=== PATIENT | female | born 1975 | race Hispanic/Latino ===

== ENCOUNTER 2018-08-06 19:24 | Emergency (ER) | payer BC ==
[~2018-08-06 19:24] MED LIST: ERGO500014 PO; IRON-6 PO; MEDR10TA11 PO
[2018-08-06] MEDS ORDERED: SODIUM CHLORIDE 0.9% 1000ML 1,000 ML IV ONE (19:51)
[2018-08-06] MEDS ORDERED: ONDANSETRON HCL 4 MG/2 ML VIAL ONE (20:14)
[2018-08-06] MEDS ORDERED: FENTANYL CITRATE PF 50 MCG/1 ML 2ML VIAL ONE (20:14)
[2018-08-06 20:18] LABS: BASOPHILS % (AUTO) 2.2 % (0.0-5.0); EOSINOPHILS % (AUTO) 2.6 % (0.0-8.0); HEMATOCRIT 30.3 % (36-48); MEAN CORPUSCULAR HEMOGLOBIN 26.5 pg (27.0-33.0); MEAN CORPUSCULAR HGB CONC 32.7 g/dL (32.0-36.0); MONOCYTES % (AUTO) 8.1 % (3.0-13.0); NEUTROPHILS % (AUTO) 62.1 % (40.0-77.0); PLATELET COUNT (AUTO) 201 K/uL (130-400); RED BLOOD CELL COUNT(AUTO) 3.74 MIL/uL (4.00-5.50); RED CELL DISTRIBUTION WIDTH 16.9 % (11.0-15.5)
[2018-08-06 20:27] LABS: CARBON DIOXIDE 26 mmol/L (21-32); CHLORIDE 105 mmol/L (101-111); CREATININE 0.8 mg/dL (0.5-1.5); GLOMERULAR FILTR. RATE CALC 84 mL/min (>60); GLUCOSE,RANDOM 103 mg/dL (70-105); INR 0.9 (0.85-1.15); PARTIAL THROMBOPLASTIN TIME 24.8 SEC (26.3-35.5); POTASSIUM 3.2 mmol/L (3.5-5.1); PROTHROMBIN TIME 9.5 SEC (9.6-11.6); SODIUM SERUM 141 mmol/L (136-145); UREA NITROGEN, BLOOD 13 mg/dL (7-18)
[2018-08-06 20:31] LABS: ALANINE AMINOTRANSFERASE 16 U/L (12-78); ALBUMIN 3.2 g/dL (3.5-5.0); ASPARTATE AMINOTRANSFERASE 10 U/L (10-37); BILIRUBIN,DIRECT < 0.1 mg/dL (0.0-0.3); BILIRUBIN,TOTAL 0.1 mg/dL (0.2-1.0); LIPASE 159 U/L (114-286); TOTAL PROTEIN, SERUM 7.3 g/dL (6.0-8.3)
[2018-08-06] MEDS ORDERED: FUROSEMIDE 10 MG/ML 4ML VIAL ONE (21:07)
[2018-08-06 22:20] LABS: APPEARANCE,URINE Cloudy (CLEAR); BILIRUBIN,URINE Small (NEGATIVE); COLOR,URINE Red (YELLOW); GLUCOSE, URINE (UA) Negative (NEGATIVE); KETONES,URINE Negative (NEGATIVE); LEUKOCYTE ESTERASE ,URINE Large (NEGATIVE); NITRATE,URINE Positive (NEGATIVE); OCCULT BLOOD,URINE Large (NEGATIVE); PH,URINE 6.5 (5.0-8.0); PROTEIN,URINE POS 2+ (NEGATIVE); UROBILINOGEN,URINE 0.2 mg/dL (0.2-1.0)
[2018-08-06 22:22] LABS: HCG,QUAL RESULT NEGATIVE (NEGATIVE)
[2018-08-06 22:34] LABS: BACTERIA,URINE Moderate /HPF (None Seen); MUCUS,URINE None Seen LPF (None Seen); RBC,URINE TNTC /HPF (0-1); SQUAMOUS EPITHELIAL CELL,UR None Seen /HPF (0-2)
[2018-08-06] MEDS ORDERED: IOHEXOL-350 75 ML VIAL IV ONE (23:13)
[2018-08-06] MEDS ORDERED: DICYCLOMINE HCL 10 MG/ML 2ML AMP IM ONE (23:49)
== END 2018-08-07 01:25 | disposition home or self-care (01) ==
LOC: EDH 19:24
DX: G89.18 Other acute postprocedural pain (principal); R10.30 Lower abdominal pain, unspecified; Z88.0 Allergy status to penicillin; Z98.890 Other specified postprocedural states
CPT/HCPCS: 36415; 74177; 76856; 76857; 80048; 80076; 81001; 81025; 83690; 85025; 85610; 85730; 96372; 96374; 96375; 99284; J0500; J1940; J2405; J3010; J7030; Q9967

== ENCOUNTER 2018-08-14 08:24 | Day surgery (SDC) | payer BC ==
[2018-08-13 17:27] VITALS: BP 127/73
[2018-08-13 17:45] LABS: BASOPHILS % (AUTO) 2.7 % (0.0-5.0); HEMATOCRIT 30.6 % (36-48); LYMPHOCYTES % (AUTO) 22.1 % (21.0-51.0); MEAN CORPUSCULAR HEMOGLOBIN 25.5 pg (27.0-33.0); MEAN CORPUSCULAR HGB CONC 31.8 g/dL (32.0-36.0); MEAN CORPUSCULAR VOLUME 80.1 fL (79-99); MONOCYTES % (AUTO) 6.4 % (3.0-13.0); NEUTROPHILS % (AUTO) 63.8 % (40.0-77.0); NUCLEATED RED BLOOD CELLS 0.1 % (0.0-0.19); PLATELET COUNT (AUTO) 276 K/uL (130-400); RED BLOOD CELL COUNT(AUTO) 3.82 MIL/uL (4.00-5.50); RED CELL DISTRIBUTION WIDTH 16.5 % (11.0-15.5); WHITE BLOOD COUNT (AUTO) 7.5 K/uL (4.8-10.8)
[2018-08-14] VITALS (14 sets, daily range): BP systolic 104–138; BP diastolic 61–82
[~2018-08-14] VITALS: Ht 177.8 cm; Wt 112.1 kg
[~2018-08-14 08:24] MED LIST changes: +CALDOLOR 800MG+NS 250ML 250 ML IV SCH; +CEFAZOLIN 3GM /D5W 100ML 100 ML IV SCH; +LACTATED RINGERS 1000ML 1,000 ML IV SCH; -MEDR10TA11 PO
[2018-08-14] MEDS: CEFAZOLIN SODIUM 1 GM VIAL ONE ×2 (09:29→11:12)
[2018-08-14] MEDS ORDERED: ETHI1TAB18 PO (10:50)
[2018-08-14] MEDS ORDERED: DEXAMETHASONE SOD PHOSPHATE 10MG/ML 1ML VIAL ONE (10:59)
[2018-08-14] MEDS ORDERED: LIDOCAINE PF 2% 5ML ABBOJECT ONE (10:59)
[2018-08-14] MEDS ORDERED: PROPOFOL 10 MG/ML 20ML VIAL IV ONE (11:00)
[2018-08-14] MEDS ORDERED: MIDAZOLAM HCL 1 MG/ML 2ML VIAL ONE (11:00)
[2018-08-14] MEDS ORDERED: ONDANSETRON HCL 4 MG/2 ML VIAL ONE (11:00)
[2018-08-14] MEDS ORDERED: FENTANYL CITRATE PF 50 MCG/1 ML 2ML VIAL ONE ×2 (11:00→11:25)
[2018-08-14] MEDS ORDERED: SULFANILAMIDE 120 GM TUBE VG ONE (11:36)
[2018-08-14] MEDS ORDERED: MEPERIDINE-PF 25 MG/ML SYG ONE (12:19)
== END 2018-08-14 13:27 | disposition home or self-care (01) ==
LOC: DAH 08:24
DX: D25.0 Submucous leiomyoma of uterus (principal); Z79.899 Other long term (current) drug therapy; Z88.0 Allergy status to penicillin; Z83.3 Family history of diabetes mellitus; E66.9 Obesity, unspecified
CPT/HCPCS: 36415; 58145; 84702; 85025; 88305; 96365; A4351; A4606; J0690; J1100; J1741; J2001; J2175; J2250; J2405; J2704; J3010 ×2; J7120